=== PATIENT | female | born 1990 | race Caucasian/White ===

== ENCOUNTER 2024-04-22 09:04 | Emergency (ER) | payer BC ==
[~2024-04-22] VITALS: Ht 154.9 cm; Wt 83.5 kg
[2024-04-22 09:35] VITALS: BP_SYST 120; PULSE 68; RESP 20; TEMP 97; O2SAT 98
[2024-04-22 11:25] LABS: BASOPHILS # (AUTO) 0.1 K/uL (0.0-0.2); BASOPHILS % (AUTO) 0.8 % (0.0-2.0); EOSINOPHILS # (AUTO) 0.1 K/uL (0.0-0.4); EOSINOPHILS % (AUTO) 1.5 % (0.0-4.0); HEMATOCRIT 46.7 % (36-48); HEMOGLOBIN 15.8 g/dL (12.0-16.0); LYMPHOCYTES # (AUTO) 2.1 K/uL (1.0-5.5); MEAN CORPUSCULAR HEMOGLOBIN 29 pg (27-31); MEAN CORPUSCULAR HGB CONC 34 % (32-36); MEAN CORPUSCULAR VOLUME 87 fL (79.0-98.0); MONOCYTES # (AUTO) 0.4 K/uL (0.0-1.0); MONOCYTES % (AUTO) 4.3 % (1.7-9.3); NEUTROPHILS # (AUTO) 6.4 K/uL (1.8-7.7); NEUTROPHILS % (AUTO) 70.4 % (40.0-70.0); PLATELET COUNT (AUTO) 276 K/uL (130-430); RED BLOOD CELL COUNT(AUTO) 5.38 MIL/uL (4.2-6.2); RED CELL DISTRIBUTION WIDTH 14.3 % (9.0-15.0); WHITE BLOOD COUNT (AUTO) 9.1 K/uL (4.8-10.8)
[2024-04-22 11:27] LABS: SERUM HCG (QUALITATIVE) NEGATIVE (NEGATIVE)
[2024-04-22] MEDS: ONDANSETRON 4 MG ODT TAB PO ONE (11:27)
[2024-04-22 11:30] LABS: PROTHROMBIN TIME 10.4 SECS (9.5-12.5)
[2024-04-22 11:44] LABS: BILIRUBIN,URINE 1+ (NEGATIVE); BLOOD, URINE NEGATIVE (NEGATIVE); CLARITY/URINE SL CLOUDY (CLEAR); COLOR,URINE YELLOW (YELLOW); GLUCOSE,URINE NEGATIVE (NEGATIVE); KETONES,URINE NEGATIVE (NEGATIVE); LEUKOCYTE ESTERASE ,URINE 2+ (NEGATIVE); NITRITE, URINE NEGATIVE (NEGATIVE); PH,URINE 6.5 (5.0-8.0); PROTEIN URINE 1+ (NEGATIVE)
[2024-04-22 12:00] LABS: ALANINE AMINOTRANSFERASE 46 U/L (12-78); ALBUMIN 4.3 g/dL (3.4-4.8); AMYLASE 130 U/L (0-100); ANION GAP 13 (5-15); ASPARTATE AMINOTRANSFERASE 28 U/L (10-37); BILIRUBIN,DIRECT 0.2 mg/dL (0.0-0.3); CALCIUM 9.4 mg/dL (8.4-11.0); CARBON DIOXIDE 24 mmol/L (23-29); CHLORIDE 103 mmol/L (98-107); CREATININE 0.82 mg/dL (0.55-1.30); GFR AFRICAN AMERICAN 103 mL/min (>90); GLUCOSE 96 mg/dL (74-106); LIPASE 76 U/L (16-77); SODIUM SERUM 140 mmol/L (136-145); TOTAL BILIRUBIN 1.1 mg/dL (0.0-1.0); TOTAL PROTEIN, SERUM 8.5 g/dL (6.4-8.3); UREA NITROGEN, BLOOD 15 mg/dL (8-21)
[2024-04-22 12:13] LABS: GFR NON AFRICAN-AMERICAN 85 mL/min (>90)
[2024-04-22] MEDS ORDERED: ONDA-8 TL (12:19)
[2024-04-22 12:29] VITALS: BP_SYST 120; PULSE 68; RESP 20; TEMP 97; O2SAT 98
[2024-04-22 12:31] LABS: BACTERIA,URINE MODERATE /HPF (None Seen); RBC,URINE 0-3 /HPF (0-3)
[2024-04-22 13:17] LABS: ACETONE, SERUM NEGATIVE (NEGATIVE)
== END 2024-04-22 12:30 | disposition home or self-care (01) ==
LOC: SED 09:04
DX: R11.2 Nausea with vomiting, unspecified (principal); R19.7 Diarrhea, unspecified; Z79.899 Other long term (current) drug therapy
CPT/HCPCS: 99283; 80076; 80048; 81001; 82009; 82150; 84703; 83690; 85025; 85610; 85730; 87086; 36415; 81025; 82948; 83605; 82397; 81000; 81015; Q0162